=== PATIENT | female | born 1960 | race Caucasian/White ===

== ENCOUNTER 2016-12-03 13:27 | Emergency (ER) | payer OTHER, SELFPAY ==
[~2016-12-03] VITALS: Ht 154.9 cm; Wt 85.3 kg
[~2016-12-03 13:27] MED LIST: CYCLOBENZAPRINE10 MG ORAL; IBUPROFEN600 MG ORAL; MACROBID100 MG ORAL; NORCO 5-325 TA1 EACH ORAL; PREDNISONE10 MG ORAL; SIMVASTATIN20 MG ORAL; SYNTHROID50 MCG ORAL; VALIUM5 MG ORAL
[2016-12-03 13:56] VITALS: BP 125/74
--- NOTE | 2016-12-03 14:22 | Emergency Room Report ---
History of Present Illness General Chief Complaint: Edema Source: Patient Present Illness HPI 76-year-old female presents to the emergency department for left lower extremities swelling located in the foot and ankle times one week. reports pain secondary to swelling /pressure is a 7/10 in severity. pt. reports surgical site pain as 5-6/10 in severity. Patient reports intermittent bilateral edema at the end of the day however she states her left lower leg has been appreciably more swollen and does not go down easily as the alternate foot swelling does. Patient also reports recent abdominal surgery where she had lipoma removed and states that surgical drain is in place and reports moderate pain about the surgical site. Patient denies fevers or chills denies discharge from the surgical sites other than into the drain. Patient reports smoking history he denies taking hormones or recent travel patient reports history of high blood pressure and hyperlipidemia. Denies trauma or fall. Denies CP, Palpitations, LOC, AMS, dizziness, Changes in Vision, Sensation, paresthesias, or a sudden severe headache. Allergies: Coded Allergies: No Known Allergies (Unverified , 04/05/14) Patient History Past Medical History: see triage record Past Surgical History: other - lipoma removal recent Pertinent Family History: none Social History: Reports: smoking Immunizations: UTD Reviewed Nursing Documentation: PMH: Agreed, PSxH: Agreed Nursing Documentation-PMH Past Medical History: No History, Except For Review of Systems All Other Systems: negative except mentioned in HPI Physical Exam Vital Signs Date Time Temp Pulse Resp B/P (MAP) Pulse Ox O2 Delivery O2 Flow Rate FiO2 12/03/16 13:42 97.2 82 18 125/74 98 Room Air Sp02 EP Interpretation: reviewed, normal General Appearance: no apparent distress, alert, GCS 15, non-toxic Head: normocephalic, atraumatic Eyes: bilateral eye normal inspection, bilateral eye PERRL ENT: hearing grossly normal, normal voice Neck: full range of motion, supple/symm/no masses Respiratory: no rhonchi, no respiratory distress, no retraction, no accessory muscle use, speaking full sentences, wheezing - scant wheeze, pt. has a dry high pitched cough, no rales or ronchi. Cardiovascular #1: regular rate, rhythm, normal capillary refill, edema - unilateral left LE edema in the foot and ankle, non pitting, no erythema, no bruises. Gastrointestinal: normal bowel sounds, non tender, soft, no guarding, no rebound Musculoskeletal: back normal, gait/station normal, normal range of motion, tender - TTP to the unilateral left LE edema in the foot and ankle, non pitting , no erythema, no bruises. Neurologic: alert, oriented x3, responsive, motor strength/tone normal, sensory intact, speech normal Psychiatric: judgement/insight normal, memory normal, mood/affect normal Skin: normal color, no rash, warm/dry, well hydrated, wd healing/no infection noted - no increased temperature to palpation, no excessive erythema, wound drain in place and noted to be functioning properly. with minimal fluid not appreciable purulent. Medical Decision Making PA Attestation Dr. araiza is my supervising Physician whom patient management has been discussed with. Diagnostic Impression: Primary Impression: Edema of leg ER Course 76-year-old female presents to the emergency department for left lower extremities swelling located in the foot and ankle times one week. reports pain secondary to swelling /pressure is a 7/10 in severity. pt. reports surgical site pain as 5-6/10 in severity. Patient reports intermittent bilateral edema at the end of the day however she states her left lower leg has been appreciably more swollen and does not go down easily as the alternate foot swelling does. Patient also reports recent abdominal surgery where she had lipoma removed and states that surgical drain is in place and reports moderate pain about the surgical site. Patient denies fevers or chills denies discharge from the surgical sites other than into the drain. Patient reports smoking history he denies taking hormones or recent travel patient reports history of high blood pressure and hyperlipidemia. Denies trauma or fall. Denies CP, Palpitations, LOC, AMS, dizziness, Changes in Vision, Sensation, paresthesias, or a sudden severe headache. Ddx considered but are not limited to fracture, sprain, Cellulitis, DVT, varicose vein, PAD,Venous insufficiency,CHF, RF, peripheral edema, surgical site infection just to name a few Vital signs: are WNL, pt. is afebrile, non-toxic in appearance, relatively healthy in appearance, alert. H&PE are most consistent with unilateral left lower leg swelling will r/o DVT, suspicious for peripheral edema. no evidence of surgical site infection. I do not suspect renal or heart failure as cause of her current symptoms given unilateral appearance, and otherwise non-toxic/ NAD other than surgical site and left ankle pain. ORDERS: CBC with Diff- no evidence of infection at this time. - LE duplex U/s to R/O dvt: was negative. ED INTERVENTIONS: -Percocet PO -CURES REVIEW: as this pt. recently filled [place] three days ago, pt. should have adeguate amt. of pain medication to control her pain, d/w pt. to contact her surgeon or PCP for alterations to her current pain management plan. I also do not feel comfortable rx'ing this pt. more pain medication as she has a hx of OD. DISCHARGE: At this time pt. is stable for d/c to home. Will provide printed patient care instructions, and any necessary prescriptions. Care plan and follow up instructions have been discussed with the patient prior to discharge. Labs Test 12/03/16 14:35 White Blood Count 8.5 K/UL (4.8-10.8) Red Blood Count 4.98 M/UL (4.20-5.40) Hemoglobin 14.5 G/DL (12.0-16.0) Hematocrit 45.7 % (37.0-47.0) Mean Corpuscular Volume 92 FL (80-99) Mean Corpuscular Hemoglobin 29.2 PG (27.0-31.0) Mean Corpuscular Hemoglobin Concent 31.8 G/DL (32.0-36.0) Red Cell Distribution Width 13.1 % (11.6-14.8) Platelet Count 454 K/UL (150-450) Mean Platelet Volume 5.4 FL (6.5-10.1) Neutrophils (%) (Auto) 60.7 % (45.0-75.0) Lymphocytes (%) (Auto) 29.2 % (20.0-45.0) Monocytes (%) (Auto) 4.1 % (1.0-10.0) Eosinophils (%) (Auto) 5.2 % (0.0-3.0) Basophils (%) (Auto) 0.8 % (0.0-2.0) Last Vital Signs Date Time Temp Pulse Resp B/P (MAP) Pulse Ox O2 Delivery O2 Flow Rate FiO2 12/03/16 13:57 82 18 Room Air 12/03/16 13:56 97.2 125/74 98 Disposition: HOME, SELF-CARE Condition: Stable Scripts Albuterol Sulfate* (ALBUTEROL SULFATE MDI*) 8.5 Gm Hfa.aer.ad 2 PUFF INH Q3H, #1 INH 0 Refills Prov: Jeimy Strickland 12/03/16 Referrals: [facility],REFERRING (PCP) Patient Instructions: Peripheral Edema, Edema, [id number] Additional Instructions: Take medications as directed. Follow up with a Primary Care Provider in 3-5 days, even if your symptoms have resolved. --Please review list of primary care clinics, if you do not already have a primary care provider Return sooner to ED if new symptoms occur, or current symptoms become worse. - Please note that this Emergency Department Report was dictated using Active [employer] nailing machine operator technology software, occasionally this can lead to erroneous entry secondary to interpretation by the dictation equipment. Jeimy Strickland Dec 03, 2016 14:22
[2016-12-03 14:51] LABS: BASOPHILS % (AUTO) 0.8 % (0.0-2.0); EOSINOPHILS % (AUTO) 5.2 % (0.0-3.0); LYMPHOCYTES % (AUTO) 29.2 % (20.0-45.0); MEAN CORPUSCULAR HEMOGLOBIN 29.2 PG (27.0-31.0); MEAN CORPUSCULAR HGB CONC 31.8 G/DL (32.0-36.0); MEAN CORPUSCULAR VOLUME 92 FL (80-99); MEAN PLATELET VOLUME 5.4 FL (6.5-10.1); MONOCYTES % (AUTO) 4.1 % (1.0-10.0); NEUTROPHILS % (AUTO) 60.7 % (45.0-75.0); PLATELET COUNT 454 K/UL (150-450); RED BLOOD COUNT 4.98 M/UL (4.20-5.40); RED CELL DISTRIBUTION WIDTH 13.1 % (11.6-14.8); WHITE BLOOD COUNT 8.5 K/UL (4.8-10.8)
[2016-12-03] MEDS ORDERED: oxyCODONE HCL/Acetaminophen 5/325mg ORAL ONE (15:15)
[2016-12-03] MEDS ORDERED: ALBUTEROL SULF8.5 GM INH (15:22)
[2016-12-03 15:31] VITALS: BP 122/75
[2016-12-03 15:32] VITALS: BP 122/75
--- NOTE | 2016-12-04 09:38 | Diagnostic Imaging Report ---
APPROVED REPORT CPT Code: 56319 Present Symptoms Lower Extremity Pain: Left LEFT LEG: Venous imaging reveals a patent deep venous system. There is no evidence of thrombus within the femoral, popliteal or tibial segments. The greater saphenous vein is also within normal limits. Doppler indicates normal spontaneous flow within these segments.
== END 2016-12-03 15:39 | disposition home or self-care (01) ==
LOC: EMR 14:05
DX: R60.9 Edema, unspecified (principal); Z98.890 Other specified postprocedural states; Z87.891 Personal history of nicotine dependence
CPT/HCPCS: 36415; 85025; 93971; 99284

== ENCOUNTER 2017-04-30 15:40 | Emergency (ER) | payer OTHER ==
[~2017-04-30] VITALS: Ht 154.9 cm; Wt 79.8 kg
[~2017-04-30 15:40] MED LIST changes: +ALBUTEROL SULF8.5 GM INH
[2017-04-30] MEDS ORDERED: DICLOFENAC SODI75 MG ORAL (15:48)
[2017-04-30] MEDS ORDERED: SYNTHROID125 MCG ORAL (15:48)
[2017-04-30 15:53] VITALS: BP 144/80
[2017-04-30] MEDS ORDERED: Ketorolac 30mg Inj IM ONE (16:30)
--- NOTE | 2017-04-30 16:35 | Emergency Room Report ---
History of Present Illness General Chief Complaint: Pain Source: Patient, Medical Record Present Illness HPI 56 yo female presents to ER complaining of rib pain on her right side. Reports history of lipoma removal surgery in November 2016, states the doctors "trimmed" part of her rib at that time. Complains of sharp pain symptoms since last night, worse with inspiration. States the pain radiates to her back. Reports taking Diclofenac for pain with mild relief of symptoms. Reports history of smoking. Denies fever, nausea, vomiting, chest pain, SOB, leg pain, calf pain. Allergies: Coded Allergies: No Known Allergies (Unverified , 04/05/14) Patient History Past Medical History: see triage record Social History: Reports: smoking - cigarettes Last Menstrual Period: menopause Reviewed Nursing Documentation: PMH: Agreed, PSxH: Agreed Nursing Documentation-PMH Past Medical History: No History, Except For Review of Systems All Other Systems: negative except mentioned in HPI Physical Exam Vital Signs Date Time Temp Pulse Resp B/P (MAP) Pulse Ox O2 Delivery O2 Flow Rate FiO2 04/30/17 15:43 97.5 78 18 144/80 99 Room Air Sp02 EP Interpretation: reviewed, normal General Appearance: no apparent distress, alert, GCS 15, non-toxic Head: normocephalic, atraumatic Eyes: bilateral eye normal inspection, bilateral eye PERRL ENT: hearing grossly normal, normal pharynx, normal voice Neck: full range of motion, supple/symm/no masses Respiratory: chest non-tender, lungs clear, normal breath sounds, no rhonchi, no respiratory distress, no wheezing, speaking full sentences Cardiovascular #1: regular rate, rhythm, no edema Gastrointestinal: normal bowel sounds, non tender, soft, non-distended, no guarding, no rebound Genitourinary: no CVA tenderness Musculoskeletal: back normal, gait/station normal, normal range of motion, non- tender, no calf tenderness, Carmela's Sign negative, tender - Right lower rib cage over surgical scar Neurologic: alert, oriented x3, responsive, motor strength/tone normal, sensory intact, speech normal Psychiatric: mood/affect normal Skin: normal color, no rash, warm/dry, well hydrated, other - 4 cm hyperpigmented linear scar along right rib cage, no erythema, no edema, no blood , no pus Medical Decision Making PA Attestation Dr. Steinberg is my supervising Physician whom patient management has been discussed with. Diagnostic Impression: Primary Impression: Rib pain on right side ER Course Pt. presents to the ED c/o right rib pain. Ddx considered but are not limited to fracture, sprain, strain, contusion, PE. Vital signs: are WNL for patient, pt. is afebrile. ORDERS: A chest x-ray was ordered, results show no fracture or acute disease, per the preliminary reading. EKG - no tachycardia, no ST elevations ED INTERVENTIONS: Lidocaine patch Toradol ER COURSE Following administration of pain medication, patient resting comfortably in bed in no acute distress. Patient states she is feeling better with improvement of pain symptoms since being provided medications in ER. CXR and EKG negative, no leg swelling or pain bilaterally, clinical suspicion for PE low. Wells Criteria score 0 per MDCalc. Discussed with patient possible reasons for pain. DISCHARGE: -Rx provided for Lidocaine patch -Rx provided for [place] 5/325. Patient given 3 pills to take once/day until Wednesday when she has an appointment with her primary care. Patient agrees to discuss with PCP further treatment for pain symptoms. Patient understands and agrees to treatment plan. At this time pt. is stable for d/c to home. Will provide printed patient care instructions, and any necessary prescriptions. Patient instructed to follow with primary care provider in 3 days for further assessment and referral for pain. Care plan and follow up instructions have been discussed with the patient prior to discharge. Take medications as directed. Patient questions asked and answered. ER precautions given, patient instructed to return to ER immediately for any new or worsening of symptoms. EKG Diagnostic Results EKG Time: 17:07 Rate: bradycardiac - 59 Rhythm: NSR, other ST Segments: no acute changes ASA given to the pt in ED: No PA Scribe Text Arturo Ramírez PA-C Rhythm Strip Diag. Results Rhythm Strip Time: 17:07 EP Interpretation: yes Rate: 59 Rhythm: NSR, no PVC's, no ectopy PA Scribe Colby Ramírez PA-C Chest X-Ray Diagnostic Results Chest X-Ray Diagnostic Results : Chest X-Ray Ordered: Yes # of Views/Limited/Complete: 1 View Indication: Other - rib pain EP Interpretation: Yes PA Xray: Interpretation reviewed, by supervising MD, and agrees with findings. Interpretation: no consolidation, no effusion, no pneumothorax Impression: No acute disease PA Scribe Text Arturo Ramírez PA-C Last Vital Signs Date Time Temp Pulse Resp B/P (MAP) Pulse Ox O2 Delivery O2 Flow Rate FiO2 04/30/17 15:53 97.5 18 144/80 99 Room Air 04/30/17 15:43 78 Status: improved Reevaluation Impression Patient resting comfortably in bed on her phone, talking without discomfort, no acute distress, non-toxic appearing. Patient reports feeling better. Disposition: HOME, SELF-CARE Condition: Stable Scripts Hydrocodone Bit/Acetaminophen 5-325* (NORCO 5-325 TABLET*) 1 Each Tablet 1 TAB ORAL DAILY Y for For Pain for 3 Days, #3 TAB Prov: Aditya Ramírez 04/30/17 Lidocaine (Lidocaine) 1 Each Adh..patch 700 MG TP EVERY 12 HOURS for 7 Days, #7 PATCH Prov: Aditya Ramírez 04/30/17 Patient Instructions: PAIN, Uncertain Cause (Acute) Additional Instructions: Followup with primary care provider in 3 -5 days. Take medications as directed. Patient questions asked and answered. ER precautions given, patient instructed to return to ER immediately for any new or worsening of symptoms. Aditya Ramírez Apr 30, 2017 16:35
[2017-04-30] MEDS ORDERED: LIDOCAINE700 M1 TP (17:25)
[2017-04-30] MEDS ORDERED: IBUPROFEN600 MG ORAL (17:25)
[2017-04-30] MEDS ORDERED: NORCO 5-325 TA1 EAC1 ORAL (17:35)
[2017-04-30 17:45] VITALS: BP 135/74
--- NOTE | 2017-05-01 10:13 | Diagnostic Imaging Report ---
Indication: Pain Technique: XRAY Chest 1v Comparison: None Findings: Heart size and mediastinal contours are within normal limits given technique. There is no focal consolidation, pneumothorax or pleural effusion. Osseous structures demonstrate no acute abnormality. Linear opacity extending from the left shoulder to the right upper abdomen likely factual/external to the patient Impression: No radiographic evidence of acute cardiopulmonary disease.
--- NOTE | 2017-05-10 13:57 | Cardiology Report ---
APPROVED REPORT EKG Measurement Heart [id number] OR [id number] Sinus bradycardia with sinus arrhythmia Otherwise normal ECG
== END 2017-04-30 18:01 | disposition home or self-care (01) ==
LOC: EMR 16:45
DX: R07.81 Pleurodynia (principal)
CPT/HCPCS: 71045; 93005; 96372; 99284; J1885

== ENCOUNTER 2019-05-20 10:36 | Emergency (ER) | payer OTHER ==
[~2019-05-20] VITALS: Ht 154.9 cm; Wt 81.6 kg
[~2019-05-20 10:36] MED LIST changes: +DICLOFENAC SODI75 MG ORAL; +LIDOCAINE700 M1 TP; +NORCO 5-325 TA1 EAC1 ORAL; +SYNTHROID125 MCG ORAL
--- NOTE | 2019-05-20 10:59 | NUR ---
ED Nurse Note: Pt walked into ED w/ c/o dry cough for 6 days. Pt feels dizzy and fatigued. Pt has also had diarrhea. Pt is alert and orientedx4, ambulatyory. Pt has history of smoking. Pt lungs are clear to auscultation bilaterally. Family present at bedside.
[2019-05-20] MEDS ORDERED: guaiFENesin w/Codeine 5ml Liq ud ORAL STA (11:17)
[2019-05-20] MEDS ORDERED: Ipratropium 0.02% Inh Soln 2.5ml UD HHN ONE (11:30)
[2019-05-20] MEDS ORDERED: Albuterol ud Inhalation HHN ONE (11:30)
[2019-05-20 11:33] VITALS: BP 130/72
--- NOTE | 2019-05-20 13:11 | Emergency Room Report ---
History of Present Illness General Chief Complaint: Flu Like Symptoms Source: Patient, Family Member, Medical Record Present Illness HPI Patient has been ill for 3 weeks. She took a Z-Alpesh early on. She was seen a week ago and given a prescription for cough medicine which she has not been able to fill. She has used an inhaler in the past but not currently. She has heard herself wheezing. The cough causes pleuritic chest pain. She also has muscle aches. The chest pain is not exertional. At triage she denies pain. She rates the pain mild to moderate to me and nonradiating. She denies calf pain or edema. There is no hemoptysis. The cough is nonproductive at this time. She denies fever at this time. She occasionally has chills. She smokes cigarettes. Patient has pemphigus. She takes prednisone chronically. Currently she is taking 20 mg. She takes 10 to 30 mg routinely and adjust the dosage on her own. She says she has no problems with her blood sugar. She is complaining of severe thirst at this time. No sore throat, palpitations, nausea, vomiting, diarrhea, dysuria, abdominal pain, depression, anxiety, visual changes, dizziness, headache. Allergies: Coded Allergies: No Known Allergies (Unverified , 04/05/14) Patient History Past Medical History: see triage record, COPD Social History: Reports: smoking Social History Narrative with sister and daughter Last Menstrual Period: menopause Reviewed Nursing Documentation: PMH: Agreed; PSxH: Agreed Nursing Documentation-PMH Past Medical History: No History, Except For Review of Systems All Other Systems: negative except mentioned in HPI Physical Exam Vital Signs Date Time Temp Pulse Resp B/P (MAP) Pulse Ox O2 Delivery O2 Flow Rate FiO2 05/20/19 10:45 98.2 76 16 137/77 (97) 96 Room Air Sp02 EP Interpretation: reviewed, normal General Appearance: well appearing, no apparent distress, GCS 15 Head: normocephalic Eyes: bilateral eye normal inspection, bilateral eye PERRL ENT: normal pharynx, moist mucus membranes Neck: full range of motion, supple Respiratory: lungs clear, normal breath sounds, other - Minimal chest wall tenderness Cardiovascular #1: regular rate, rhythm, no edema Cardiovascular #2: 2+ radial (R) Gastrointestinal: normal inspection, normal bowel sounds, non-distended Musculoskeletal: back normal, normal range of motion, no calf tenderness, gait/ station normal Neurologic: alert, oriented x3, grossly normal Psychiatric: mood/affect normal Skin: warm/dry, other - Mild erythroderma anterior chest Medical Decision Making Diagnostic Impression: Primary Impression: Bronchospasm Additional Impression: Chest pain Qualified Codes: R07.1 - Chest pain on breathing ER Course Patient presents with 10 days of upper respiratory symptoms with wheezing and post treatment with a Z-Alpesh. Differential includes acute myocardial infarction , pneumonia, bronchitis, exacerbation of COPD, viral syndrome amongst others. Due to the symptoms and findings influenza is unlikely. Evaluation with EKG and chest x-ray. Patient treated with prednisone and breathing treatments. Because of her thirst and being on prednisone Accu-Chek will be performed. EKG normal. Chest x-ray no infiltrates. Accu-Chek 159. Patient improved with treatment however still complaining about pain. Robitussin with codeine administered. Discussed findings and treatment plan with patient. Discussed the need for smoking cessation. Antibiotics not indicated. Patient improved and stable for outpatient observation and treatment. EKG Diagnostic Results Rate: normal Rhythm: NSR ST Segments: no acute changes Chest X-Ray Diagnostic Results Chest X-Ray Diagnostic Results : Chest X-Ray Ordered: Yes # of Views/Limited/Complete: 1 View Indication: Other EP Interpretation: Yes Interpretation: no consolidation, no effusion, no pneumothorax Impression: No acute disease Electronically Signed by: Electronically signed by Koffi Marte MD Last Vital Signs Date Time Temp Pulse Resp B/P (MAP) Pulse Ox O2 Delivery O2 Flow Rate FiO2 05/20/19 13:25 98.1 80 16 128/70 99 Room Air 05/20/19 11:46 21 Status: improved Disposition: HOME, SELF-CARE Condition: Improved Scripts Codeine/Promethazine Hcl* (PROMETHAZINE-CODEINE SYRUP*) 118 Ml Syrup 5 ML ORAL Q6H PRN for For Cough, #90 ML 0 Refills Prov: Koffi Marte MD 05/20/19 Albuterol Sulfate* (ALBUTEROL SULFATE MDI*) 8.5 Gm Hfa.aer.ad 2 PUFF INH Q6H, #1 EA 0 Refills Prov: Koffi Marte MD 05/20/19 Prednisone* (PREDNISONE*) 20 Mg Tablet 40 MG ORAL DAILY, #10 TAB Prov: Koffi Marte MD 05/20/19 Referrals: NON PHYSICIAN (PCP) Koffi Marte MD May 20, 2019 13:11
[2019-05-20] MEDS ORDERED: PROMETHAZINE-C118 M1 ORAL (13:15)
[2019-05-20] MEDS ORDERED: ALBUTEROL SULF8.5 GM INH (13:15)
[2019-05-20] MEDS ORDERED: PREDNISONE20 MG ORAL (13:15)
[2019-05-20 13:25] VITALS: BP 128/70
--- NOTE | 2019-05-20 13:25 | NUR ---
ER DISCHARGE NOTE: Patient is cleared to be discharged per ERMD, pt is aox4, on room air, with stable vital signs. pt was given dc and prescription instructions, pt was able to verbalize understanding, pt id band removed without complications. pt is able to ambulate with steady gait. pt took all belongings.
--- NOTE | 2019-05-20 15:06 | Diagnostic Imaging Report ---
EXAM: XR Chest, 1 View CLINICAL HISTORY: COUGH TECHNIQUE: Frontal view of the chest. COMPARISON: Image from prior exam not available at the time of interpretation FINDINGS: Hardware: None. Lungs/pleura: Normal. No focal consolidation. No pleural effusion or pneumothorax. Heart/mediastinum: Normal. No cardiomegaly. Soft tissues: Unremarkable. Bones: No acute fracture. Upper abdomen: Normal. IMPRESSION: No acute disease identified.
== END 2019-05-20 13:26 | disposition home or self-care (01) ==
LOC: EMR 12:31
DX: J98.01 Acute bronchospasm (principal); J44.9 Chronic obstructive pulmonary disease, unspecified; F17.200 Nicotine dependence, unspecified, uncomplicated; R07.1 Chest pain on breathing
CPT/HCPCS: 71045; 82962; 93005; 94640; J7512; Z7502; 99284